=== PATIENT | female | born 1985 | race Caucasian/White ===

== ENCOUNTER 2021-11-19 09:32 | Emergency (ER) | payer OTHER, SELFPAY ==
[2021-11-19 09:41] VITALS: BP 141/79; PULSE 79; RESP 18; TEMP 37.1; O2SAT 100
--- NOTE | 2021-11-19 10:15 | ED.SKABFB ---
HPI - Skin/Abscess/Foreign Bdy General Chief complaint: Skin/Abscess/Foreign Body <Nargis Arguello PA-C - Last Filed: 11/19/21 12:11> Stated complaint: abscess to L axilla/ear infxn <Nargis Arguello PA-C - Last Filed: 11/19/21 12:11> Time Seen by Provider: 11/19/21 09:59 <Nargis Arguello PA-C - Last Filed: 11/19/21 12:11> Source: patient <Nargis Arguello PA-C - Last Filed: 11/19/21 12:11> Mode of arrival: ambulatory <Nargis Arguello PA-C - Last Filed: 11/19/21 12:11> Limitations: no limitations <Nargis Arguello PA-C - Last Filed: 11/19/21 12:11> History of Present Illness HPI narrative: This is a 36-year-old female that presents to the emergency department for a possible abscess to her left axilla. Noted over the last couple of days. Reports today the pain and swelling acutely worsened which prompted her to be seen. Also reports she has been having some pain around her right jaw. Reports she has several bad teeth . Denies fever or drainage. <Nargis Arguello PA-C - Last Filed: 11/19/21 12:11> Related Data Allergies/Adverse reactions: Allergies Allergy/AdvReac Type Severity Reaction Status Date / Time codeine Allergy Unknown Vomiting Unverified 11/19/21 09:45 hydrocodone Allergy Vomiting Verified 11/19/21 09:45 <Nargis Arguello PA-C - Last Filed: 11/19/21 12:11> Review of Systems Review of Systems: CONSTITUTIONAL: Denies fever SKIN: Reports abscess <Nargis Arguello PA-C - Last Filed: 11/19/21 12:11> All systems reviewed & are unremarkable except as noted in HPI and below <Nargis Arugello PA-C - Last Filed: 11/19/21 12:11> [facility] Past Medical History Medical History: Medical History (Updated 11/19/21 @ 12:09 by Nargis L. Arguello, PA-C) History of atopic dermatitis <Nargis Arguello PA-C - Last Filed: 11/19/21 12:11> Social History Social History: Social History (Updated 11/19/21 @ 10:18 by Nargis Arguello PA-C) Smoking status: Current every day smoker Substance use: never <Nargis Arguello PA-C - Last Filed: 11/19/21 12:11> Exam Narrative: GENERAL: Well-appearing, well-nourished, and in no acute distress. HEAD: Normocephalic, atraumatic. EYES: EOMI ENT: Mucous membranes moist. Oropharynx without tonsillar hypertrophy exudate or other lesions. Bilateral TMs pearly posada non-bulging. Poor dentition. No focal area of erythema or fluctuance to suggest abscess. No trismus NECK: Supple. No adenopathy or masses. CHEST: Clear to auscultation. No respiratory distress. No wheezes rales or rhonchi HEART: Regular rate and rhythm. No murmur heard. Normal peripheral pulses. EXTREMITIES: Normal range of motion. No edema. 2.5 cm circular area of erythema with central fluctuance to the left axilla. No lymphangitic streaking SKIN: Warm, dry, no rash. NEURO: No focal deficits. Alert and oriented x3. PSYCH: Normal mood and affect <Nargis Arguello PA-C - Last Filed: 11/19/21 12:11> Course Vital Signs Vital signs: Vital Signs Temperature 98.8 F 11/19/21 09:41 Pulse Rate 79 11/19/21 09:41 Respiratory Rate 18 11/19/21 09:41 Blood Pressure 141/79 H 11/19/21 09:41 Pulse Oximetry 100 11/19/21 09:41 Temperature 97.5 F L 11/19/21 12:20 Pulse Rate 75 11/19/21 12:20 Respiratory Rate 16 11/19/21 12:20 Blood Pressure 134/70 11/19/21 12:20 Pulse Oximetry 98 11/19/21 12:20 <Nargis Arguello PA-C - Last Filed: 11/19/21 12:11> Procedures Abscess I/D upper extremity: Date of Incision: 11/19/21 <Nargis Arguello PA-C - Last Filed: 11/19/21 12:11> Time of Incision: 11:30 <Nargis Arguello PA-C - Last Filed: 11/19/21 12:11> Side (if applicable): left <Nargis Arguello PA-C - Last Filed: 11/19/21 12:11> Local Anesthetic: lidocaine 1% and with epi <Nargis Arguello PA-C - Last Filed: 11/19/21 12:11> Amount of anesthesia used (mL): 2 <Nargis Rodriguez
[2021-11-19 12:20] VITALS: BP 134/70; PULSE 75; RESP 16; TEMP 36.4; O2SAT 98
== END 2021-11-19 12:21 | disposition home or self-care (01) ==
PROVIDERS: Emergency Provider Emergency Medicine; PCP Nurse Practitioner Adult Health
DX: L03.112 Cellulitis of left axilla (principal); F17.200 Nicotine dependence, unspecified, uncomplicated
CPT/HCPCS: 10160; 99283